=== PATIENT | female | born 1955 | race Two or more races ===

== ENCOUNTER 2025-02-01 18:00 | Emergency (ER) | payer OTHER ==
[~2025-02-01] VITALS: Ht 162.6 cm; Wt 72.7 kg
[2025-02-01 18:10] VITALS: TEMP 98.7
[2025-02-01 18:58] LABS: Hematocrit 48.5 % (36.0-46.0); Hemoglobin 16.6 g/dL (12.2-16.2); Mean Corpuscular Hemoglobin 31.0 pg (28.0-32.0); Mean Corpuscular Volume 90.6 fL (80.0-100.0); Nucleated Red Blood Cells % 0.0 %
[2025-02-01 19:06] LABS: Chloride 106 mmol/L (98-107); Potassium 4.1 mmol/L (3.5-5.1); Sodium 140 mmol/L (136-145)
[2025-02-01 19:07] LABS: Anion Gap 11 (5-15); Calcium 10.1 mg/dL (8.7-10.4); Carbon Dioxide 23 mmol/L (20-31)
[2025-02-01 19:12] LABS: BUN/Creatinine Ratio 9.1 (10.0-20.0); Blood Urea Nitrogen 8 mg/dL (9-23); Glucose 128 mg/dL (74-106)
--- NOTE | 2025-02-01 19:14 | ED.PDOC ---
Psychiatric HPI Comments 69 year old female presents to ER with complaints of anxiety x 1 day. Patient with PMH of anxiety, presents VIA EMS reporting that she started feeling "very anxious" with associated cold sweats and n/v last night at 7 p.m. Notes she's had similar symptoms in the past related to anxiety and states that she normally takes xanax for her anxiety but has not taken any since her symptoms started at 7 p.m. last night. Denies any pain and presents to ER alert and oriented x4, ambulatory with steady gait and is noted to be slightly anxious. Denies shortness of breath, palpitations, chest pain, abdominal pain or any further symptoms/complaints Chief Complaint: Anxiety Time Seen by MD: 18:41 Primary Care Provider: UNKNOWN Reviewed Notes: Nurses Notes, Medications, Allergies Information Source: Patient Mode of Arrival: EMS Past Medical History PAST MEDICAL HISTORY: Anxiety, COPD Past Medical History (Other): HEP-C Surgical History: Denies all surgeries Surgical History (Other): Bilateral cataracts surgery Right femur surgery MICROWAVE RADIO TECHNICIAN History: No Pertinent MICROWAVE RADIO TECHNICIAN History Family History Family History: Unknown Social History Smoker: Non-Smoker Alcohol: Denies ETOH Use Drugs: Denies Drug Use Lives In: Home Constitutional: denies: chills, diaphoresis, fatigue, fever, malaise, sweats, weakness, others EENTM: denies: blurred vision, double vision, ear bleeding, ear discharge, ear drainage, ear pain, ear ringing, eye pain, eye redness, hearing loss, mouth pain, mouth swelling, nasal discharge, nose bleeding, nose congestion, nose pain, photophobia, tearing, throat pain, throat swelling, voice changes, others Respiratory: denies: cough, hemoptysis, orthopnea, SOB at rest, shortness of breath, SOB with excertion, stridor, wheezing, others Cardiovascular: denies: chest pain, dizzy spells, diaphoresis, Dyspnea on exertion, edema, irregular heart beat, left arm pain, lightheadedness, palpitati ons, PND, syncope, others Gastrointestinal: reports: others (As stated in HPI) Genitourinary: denies: abnormal vagina bleeding, burning, dyspareunia, dysuria, flank pain, frequency, hematuria, incontinence, pain, , vagina discharge, urgency, others Neurological: denies: dizziness, fainting, headache, left sided numbness, left sided weakness, numbness, paresthesia, pre-existing deficit, right sided numbness, right sided weakness, seizure, speech problems, tingling, tremors, weakness, others Musculoskeletal: denies: back pain, gout, joint pain, joint swelling, muscle pain, muscle stiffness, neck pain, others Integumetry: denies: bruises, change in color, change in hair/nails, dryness, laceration, lesions, lumps, rash, wounds, others Allergic/Immunocompromised: denies: Difficulty Healing, Frequent Infections, Hives, Itching, others Hematologic/Lymphatic: denies: anemia, blood clots, easy bleeding, easy bruising, swollen glands, others Endocrine: denies: excessive hunger, excessive sweating, excessive thirst, excessive urination, flushing, intolerance to cold, intolerance to heat, unexplained weight gain, unexplained weight loss, others Psychiatric: reports: others (As stated in HPI) Physical Exam General Appearance: Mild Distress (Patient slightly anxious) HEENT: Normal ENT Inspection, PERRL/EOMI, Pharynx Normal, TMs Normal Neck: Full Range of Motion, Non-Tender, Normal Respiratory: Chest Non-Tender, Lungs Clear, No Accessory Muscle Use, No Respiratory Distress, Normal Breath Sounds Cardiovascular: No Murmur, No Gallop, Regular Rate/Rhythm Breast Exam: Deferred Gastrointestinal: Non Tender, No Pulsatile Mass, Soft Genitalia: Deferred Pelvic: Deferred Rectal: Deferred Extremities: Normal capillary refill, Normal range of motion Neurologic: Alert, furrier designer II-XII nml as Tested, No Motor Deficits, No Sensory Deficits Cerebellar Function: Normal Reflexes: Normal Skin: Dry, Normal Color, Warm Peripheral Pulses: 2+ Radial (R), 2+ Radial (L), 2+ Brachial (R), 2+ Brachial (L) Lymphatic: No Adenopathy EKG EKG : Pulse Rate (adult): 94 [place]: Normal Cardiac Rhythm: NSR (SR) Block: None Hypertrophy: None ST: Normal Was a procedure done? Was a procedure done?: No Sedation Sedation?: No Psych Differential Dx Intoxication Differential Dx: Hallucinations, Seizures, Dehydration, Other (PR) X-Ray, Labs, Meds, VS Vital Signs Date Time Temp Pulse Resp B/P (MAP) Pulse Ox O2 Delivery O2 Flow Rate FiO2 02/01/25 19:29 94 02/01/25 19:25 94 02/01/25 19:22 Room Air* 0 21 02/01/25 18:10 98.7 95 18 135/78 (97) 98 98.7 Lab Test 02/01/25 19:43 02/01/25 18:48 Range/Units Urine Color Light-orange Yellow Urine Clarity Turbid H Clear Urine pH 5.5 5.0-9.0 Urine Specific [place] 1.022 1.001-1.035 Urine Protein Trace H Negative Urine Ketones 2+ H Negative Urine Blood Trace H Negative /uL Urine Nitrite Negative Negative Urine Bilirubin Negative Negative Urine Urobilinogen 2 H Negative mg/dL Urine Leukocyte Esterase 3+ Negative /uL Urine RBC 20 0 - 4 /hpf Urine Microscopic WBC 52 H 0-5 /HPF Urine Squamous Epithelial Cells Mod <5 /hpf Urine Bacteria Few H None Seen /hpf Urine Mucus Few None Seen Urine Glucose Normal Normal mg/dL White Blood Count 15.2 H 4.4-10.8 10^3/uL Red Blood Count 5.35 H 4.0-5.20 10^6/uL Hemoglobin 16.6 H 12.2-16.2 g/dL Hematocrit 48.5 H 36.0-46.0 % Mean Corpuscular Volume 90.6 80.0-100.0 fL Mean Corpuscular Hemoglobin 31.0 28.0-32.0 pg Mean Corpuscular Hemoglobin Concent 34.3 32.0-36.0 g/dL Red Cell Distribution Width 12.7 11.8-14.3 % Platelet Count 288 140-450 10^3/uL Mean Platelet Volume 7.7 6.9-10.8 fL Neutrophils (%) (Auto) 84.6 H 37.0-80.0 % Lymphocytes (%) (Auto) 9.3 L 10.0-50.0 % Monocytes (%) (Auto) 5.7 0.0-12.0 % Eosinophils (%) (Auto) 0.1 0.0-7.0 % Basophils (%) (Auto) 0.3 0.0-2.0 % Neutrophils # (Auto) 12.9 H 1.6-8.6 10 ^3/uL Lymphocytes # (Auto) 1.4 0.4-5.4 10 ^3/uL Monocytes # (Auto) 0.9 0-1.3 10 ^3/uL Eosinophils # (Auto) 0 0-0.8 10 ^3/uL Basophils # (Auto) 0.1 0-0.2 10 ^3/uL Nucleated Red Blood Cells 0.0 % Sodium Level 140 136-145 mmol/L Potassium Level 4.1 3.5-5.1 mmol/L Chloride Level 106 98-107 mmol/L Carbon Dioxide Level 23 20-31 mmol/L Anion Gap 11 5-15 Blood Urea Nitrogen 8 L 9-23 mg/dL Creatinine 0.88 0.550-1.02 mg/dL Glomerular Filtration Rate Calc 71 >90 mL/min BUN/Creatinine Ratio 9.1 L 10.0-20.0 Serum Glucose 128 H 74-106 mg/dL Calcium Level 10.1 8.7-10.4 mg/dL Troponin I High Sensitivity < 3 L </=34 ng/L Current Medications Medications (Trade) Dose Ordered Sig/Syed Route Start Time Stop Time Status Last Admin Alprazolam (Xanax Tablet) 0.5 mg ONCE ONCE PO 02/01/25 19:15 02/01/25 19:16 DC 02/01/25 19:19 Ondansetron HCl (Zofran Po) 4 mg ONCE ONCE PO 02/01/25 19:15 02/01/25 19:16 DC 02/01/25 19:19 CBC reviewed-WBC 15.2 BMP reviewed without any significant abnormalities Troponin reviewed-normal EKG reviewed Xanax 0.5 mg p.o. ordered Zofran 4 mg p.o. ordered Rocephin 1 g IM ordered Patient had improvement in symptoms, vitals stable and well appearing/in no distress prior to discharge Advised to drink plenty of fluids Advised to follow up with PCP in 1-2 days Patient alert and oriented x4 prior to discharge. Patient verbalized understanding and agreeable with current plan of care Advised to return to ER immediately if symptoms worsen Time of 1ST Reevaluation: 19:12 Reevaluation 1ST: N/A Patient Education/Counseling: Diagnosis, Treatment, Prognosis, Need For Follow Up Family Education/Counseling: No Family Present Departure 1 Departure Time of Disposition: 20:12 Impression: Primary Impression: UTI (urinary tract infection) Qualified Codes: N30.01 - Acute cystitis with hematuria Additional Impression: Anxiety Disposition: HOME / SELF CARE / HOMELESS Condition: Stable e-Prescriptions Sulfamethoxazole W/Trimethopri (Bactrim Ds Tablet) 1 Tab Tb 1 TAB PO BID for 7 Days, #14 TAB 0 Refills Prov: RAVI LENTZ 02/01/25 Discharged With: Friend Critical Care Note Critical Care Time?: No Stability Stability form required: No Heart Score Heart Score: Heart Score Response (Comments) Value History N/A 0 EKG N/A 0 Age N/A 0 Risk Factors N/A 0 Troponin N/A 0 Total 0 RAVI LENTZ Feb 01, 2025 19:14
[2025-02-01] MEDS: ONDANSETRON ODT 4 MG TAB PO ONE (19:19)
[2025-02-01] MEDS: ALPRAZolam 0.5 MG TAB PO ONE (19:19)
[2025-02-01 19:56] LABS: Urine Protein, UAD TRACE (Negative)
--- NOTE | 2025-02-01 20:03 | DVH ---
XY CHEST TWO VIEWS ROUTINE CLINICAL HISTORY: shortness of breath COMPARISON: None TECHNIQUE: Frontal and lateral view of the chest was obtained FINDINGS: Lines and Tubes: None Lungs: No focal consolidation. Pleura: No effusion. No pneumothorax. Cardiomediastinal contours: Unremarkable Bones: No acute osseous abnormality. IMPRESSION: No acute cardiopulmonary disease.
[2025-02-01] MEDS ORDERED: BACDST PO (20:16)
--- NOTE | 2025-02-01 20:40 | ECG ---
[facility] Test Date: 2025-02-01 Test Time: 19:25:06 Pat Name: MAYRA RIVAS Department: ER Room: Gender: F Counter Helper: BARBIE : 1955 Requested By: RAVI LENTZ Order Number: [id number] Reading MD: Raúl Barrera Measurements Intervals [place] Rate: 94 P: 72 WA: 129 QRS: 44 QRSD: 84 T: 46 QT: 350 QTc: 438 Interpretive Statements Sinus rhythm Electronically Signed On 02-02-2025 17:02:24 PDT by Raúl Barrera Please click the below link to view image of tracing.
[2025-02-01 20:59] VITALS: BP 139/70; PULSE 90; RESP 15; O2SAT 97
[2025-02-01] MEDS: cefTRIAXone SOD 1,000 MG VL IM ONE (20:59)
== END 2025-02-01 21:00 | disposition home or self-care (01) ==
LOC: ER 18:00 → EDBD 18:00 → ER 21:00
DX: N39.0 Urinary tract infection, site not specified (principal); F41.9 Anxiety disorder, unspecified; J44.9 Chronic obstructive pulmonary disease, unspecified; Z79.899 Other long term (current) drug therapy
CPT/HCPCS: 36415; 71046; 80048; 81001; 84484; 85025; 93005; 96372; 99285; J0696; Q0162

== ENCOUNTER 2025-02-06 17:40 | Emergency (ER) | payer OTHER ==
[~2025-02-06] VITALS: Ht 154.9 cm; Wt 66.0 kg
[~2025-02-06 17:40] MED LIST: BACDST PO
--- NOTE | 2025-02-06 17:56 | ED.PDOC ---
GI ASSESSMENT HPI Comments 69 y/o F, presents to the ED for CC of nausea/vomiting. Patient states, that she has been experiencing nausea and vomiting x1 week following, taking Bactrim for Dx:UTI. Patient reports, to feel associated tremors. Patient denies any airway involvement. Patient denies drooling, itchiness, rash, shortness of breath, or difficulty swallowing. Vital signs were stable on arrival. Time Seen by MD: 17:50 Primary Care Provider: UNKNOWN Reviewed Notes: Nurses Notes, Medications, Allergies Allergies: Coded Allergies: Sulfamethoxazole w/Trimethoprim (Verified Allergy, Severe, 02/06/25) Home Meds Active Scripts Sulfamethoxazole W/Trimethopri (Bactrim Ds Tablet) 1 Tab Tb, 1 TAB PO BID for 7 Days, #14 TAB 0 Refills Prov:RAVI LENTZ 02/01/25 Information Source: Patient Mode of Arrival: Ambulatory Timing: Weeks Duration: Since onset Prehospital treatment: None Quality: None Vomitus: Watery Stool: Normal Severity: Moderate Recent Hx of: None Pain Location: None Modifying Factors: Nothing Associated sign and symptoms: Nausea, Vomiting Past Medical History PAST MEDICAL HISTORY: Anxiety, COPD, UTI'S Surgical History: Denies all surgeries CLAIMS DIRECTOR History: No Pertinent CLAIMS DIRECTOR History Family History Family History: Unknown Social History Smoker: Non-Smoker Alcohol: Denies ETOH Use Drugs: Denies Drug Use Lives In: Home Constitutional: denies: chills, diaphoresis, fatigue, fever, malaise, sweats, weakness, others EENTM: denies: blurred vision, double vision, ear bleeding, ear discharge, ear drainage, ear pain, ear ringing, eye pain, eye redness, hearing loss, mouth pain, mouth swelling, nasal discharge, nose bleeding, nose congestion, nose pain, photophobia, tearing, throat pain, throat swelling, voice changes, others Respiratory: denies: cough, hemoptysis, orthopnea, SOB at rest, shortness of breath, SOB with excertion, stridor, wheezing, others Cardiovascular: denies: chest pain, dizzy spells, diaphoresis, Dyspnea on exertion, edema, irregular heart beat, left arm pain, lightheadedness, palpitations, PND, syncope, others Gastrointestinal: reports: nausea, vomiting; denies: abdomen distended, abdominal pain, blood streaked bowels, constipated, diarrhea, dysphagia, difficulty swallowing, hematemesis, melena, poor appetite, poor fluid intake, rectal bleeding, rectal pain, others Genitourinary: denies: abnormal vagina bleeding, burning, dyspareunia, dysuria, flank pain, frequency, hematuria, incontinence, pain, , vagina discharge, urgency, others Neurological: denies: dizziness, fainting, headache, left sided numbness, left sided weakness, numbness, paresthesia, pre-existing deficit, right sided numbness, right sided weakness, seizure, speech problems, tingling, tremors, weakness, others Musculoskeletal: denies: back pain, gout, joint pain, joint swelling, muscle pain, muscle stiffness, neck pain, others Integumetry: denies: bruises, change in color, change in hair/nails, dryness, laceration, lesions, lumps, rash, wounds, others Allergic/Immunocompromised: denies: Difficulty Healing, Frequent Infections, Hives, Itching, others Hematologic/Lymphatic: denies: anemia, blood clots, easy bleeding, easy bruising, swollen glands, others Endocrine: denies: excessive hunger, excessive sweating, excessive thirst, excessive urination, flushing, intolerance to cold, intolerance to heat, unexplained weight gain, unexplained weight loss, others Psychiatric: denies: anxiety, bipolar disorder, depression, hopeless, panic disorder, schizophrenia, sleepless, suicidal, others All Other Systems: Reviewed and Negative Physical Exam General Appearance: Mild Distress (Patient was in moderate distress due to nausea concerns. Patient appeared to be in poor overall health.), Normal HEENT: Normal ENT Inspection, Pharynx Normal, TMs Normal Neck: Full Range of Motion, Non-Tender, Normal, Normal Inspection Respiratory: Chest Non-Tender, Lungs Clear, No Accessory Muscle Use, No Respiratory Distress, Normal Breath Sounds Cardiovascular: No Edema, No JVD, No Murmur, No Gallop, Normal Peripheral Pulses, Regular Rate/Rhythm Breast Exam: Deferred Gastrointestinal: No Organomegaly, Non Tender, No Pulsatile Mass, Normal Bowel Sounds, Soft Genitalia: Deferred Pelvic: Deferred Rectal: Deferred Extremities: No calf tenderness, Normal capillary refill, Normal inspection, Normal range of motion, Non-tender, No pedal edema Neurologic: Alert, No Motor Deficits, Normal Affect, Normal Mood, No Sensory Deficits Cerebellar Function: NOT DONE Reflexes: NOT DONE Skin: Dry, Normal Color, Warm Lymphatic: No Adenopathy Was a procedure done? Was a procedure done?: No GI differential Dx Differential Diagnosis: Other (UTI, adverse response to antibiotic) X-Ray, Labs, Meds, VS Vital Signs Date Time Temp Pulse Resp B/P (MAP) Pulse Ox O2 Delivery O2 Flow Rate FiO2 02/06/25 19:36 98.3 105 20 137/83 (101) 92 98.3 02/06/25 19:36 105 20 92 Room Air 02/06/25 17:53 97.1 93 15 121/72 (88) 96 97.1 Lab Test 02/06/25 17:30 Range/Units Urine Color Yellow Yellow Urine Clarity Turbid H Clear Urine pH 6.0 5.0-9.0 Urine Specific [place] 1.019 1.001-1.035 Urine Protein Trace H Negative Urine Ketones Trace Negative Urine Blood Negative Negative /uL Urine Nitrite Negative Negative Urine Bilirubin Negative Negative Urine Urobilinogen 2 H Negative mg/dL Urine Leukocyte Esterase Negative Negative /uL Urine RBC 3 0 - 4 /hpf Urine Microscopic WBC 2 0-5 /HPF Urine Squamous Epithelial Cells Few <5 /hpf Urine Bacteria None seen None Seen /hpf Urine Hyaline Casts Few 0 - 2 /lpf Urine Glucose Normal Normal mg/dL Current Medications Medications (Trade) Dose Ordered Sig/Syed Route Start Time Stop Time Status Last Admin Metoclopramide HCl (Reglan Tablet) 10 mg ONCE ONCE PO 02/06/25 18:00 02/06/25 18:01 DC 02/06/25 18:13 X-Ray, Labs, Meds, VS Comment All studies performed the ED were evaluated by me personally. Urinalysis was unremarkable for any urinary tract infection. Patient has been advised to cease Bactrim use and to notify providers with the future that it appears she had an allergic reaction to that medication. Time of 1ST Reevaluation: 20:36 Reevaluation 1ST: Improved Consultation: PCP Patient Education/Counseling: Diagnosis, Treatment Family Education/Counseling: Diagnosis, Treatment, No Family Present SEPSIS Sepsis Screen Recent Procedure: No On Antibiotic Therapy: No Respiratory Rate >20: No Heart Rate >90: No Temp<36 C (96.8 F) or >38.3 C: No SBP <90 or MAP <65 mmHG: No New Acute Mental Status Change: No Is the patient on CPAP, BIPAP,: No Vital Signs Date Time Temp Pulse Resp B/P (MAP) Pulse Ox O2 Delivery O2 Flow Rate FiO2 02/06/25 19:36 98.3 105 20 137/83 (101) 92 98.3 02/06/25 19:36 105 20 92 Room Air 02/06/25 17:53 97.1 93 15 121/72 (88) 96 97.1 Medications Medications Dose Ordered Sig/Syed Route Start Time Stop Time Status Last Admin Dose Admin Metoclopramide HCl 10 mg ONCE ONCE PO 02/06/25 18:00 02/06/25 18:01 DC 02/06/25 18:13 Departure 1 Departure Time of Disposition: 20:37 Impression: Primary Impression: Allergic reaction due to antibacterial drug Disposition: HOME / SELF CARE / HOMELESS Condition: Stable Additional Instructions: Patient does not have a urinary tract infection and therefore, patient should not take any more antibiotic. Patient has been advised to notify any medical personally in the future that she has allergic reactions to Bactrim. Advise utilizing medication or nausea and vomiting as needed. e-Prescriptions Metoclopramide Hcl (Reglan) 10 Mg Tab 10 MG PO Q8HP PRN, #10 TAB Prov: ERUM SINGLETON PAC 02/06/25 Discharged With: Self, Friend Critical Care Note Critical Care Time?: No Stability Stability form required: No Heart Score Heart Score: Heart Score Response (Comments) Value History N/A 0 EKG N/A 0 Age N/A 0 Risk Factors N/A 0 Troponin N/A 0 Total 0 I personally scribed for ERUM SINGLETON PAC ([email or web address]) on 02/06/25 at 17:56. Electronically submitted by Libertad Helton ([email or web address]). ERUM SINGLETON PAC Feb 06, 2025 17:56
[2025-02-06 18:12] LABS: Urine Protein, UAD TRACE (Negative)
[2025-02-06] MEDS: METOCLOPRAMIDE HCL 10 MG TAB PO ONE (18:13)
[2025-02-06 19:36] VITALS: BP 137/83; PULSE 105; RESP 20; TEMP 98.3; O2SAT 92
[2025-02-06] MEDS ORDERED: METO-281 PO (20:38)
== END 2025-02-06 21:00 | disposition home or self-care (01) ==
LOC: ER 17:40
DX: R11.2 Nausea with vomiting, unspecified (principal); T36.8X5A Adverse effect of other systemic antibiotics, initial encounter; Z88.2 Allergy status to sulfonamides; Y92.89 Other specified places as the place of occurrence of the external cause
CPT/HCPCS: 81001; 99283; J8597